=== PATIENT | female | born 2000 | race African-American/Black ===

== ENCOUNTER 2021-09-12 18:21 | Emergency (ER) | payer MEDICAID, OTHER ==
[2021-09-12] MEDS ORDERED: Bicillin LA 1.2 MILLION UNITS/2 ML SYRINGE ONE (20:40)
[2021-09-12] MEDS ORDERED: Dexamethasone 10 MG/ML VIAL ONE (20:54)
[2021-09-12] MEDS ORDERED: Acetaminophen 500 MG TAB ONE (22:10)
== END 2021-09-13 00:06 | disposition home or self-care (01) ==
LOC: ERS 18:21
DX: J02.0 Streptococcal pharyngitis (principal); Z86.16 Personal history of COVID-19
CPT/HCPCS: 87081; 87430; 96372; 96374; J0561; J1100